=== PATIENT | male | born 1970 | race Caucasian/White ===

== ENCOUNTER 2021-06-13 21:44 | Emergency (ER) | payer OTHER, SELFPAY ==
[2021-06-13 21:59] VITALS: BP 137/79; PULSE 79; RESP 16; TEMP 37.3; O2SAT 97; BMI 26.6
[2021-06-13 22:43] LABS: COVID-19 Test Negative (Negative)
--- NOTE | 2021-06-14 00:10 | ED.FEVER ---
HPI - Fever General Chief Complaint: Fever Stated Complaint: fever, migraine Time Seen by Provider: 06/13/21 22:58 Source: patient Mode of arrival: ambulatory Limitations: no limitations History of Present Illness MD elicited complaint: fever, malaise and other (body aches, headaches) Pertinent past history: other (2 covid vaccines) Onset (ago): day(s) (2) Exacerbating factors: nothing Relieving factors: nothing Associated symptoms: myalgias, headache and sore throat Treatments prior to arrival fever: none Related Data Allergies Allergy/AdvReac Type Severity Reaction Status Date / Time No Known Allergies Allergy Verified 06/13/21 21:59 Review of Systems Review of Systems: Constitutional : positive Fever, positive Chills, positive fatigue, positive Malaise ENT/Mouth : positive sore throat, no runny nose Eyes: No Discharge Cardiovascular : No Chest Pain, No SOB Respiratory : No Cough, No Sputum Gastrointestinal : No Nausea, No Vomiting, No Diarrhea Genitourinary : No Dysuria, No Urinary Frequency Musculoskeletal : positive Myalgia Skin : No rash Neuro : pos Headache PMFSH Past Medical History Attestation statement: The following information was validated with the patient. Medical History No known health problems Social History Social History (Updated 06/14/21 @ 00:12 by Nuvia Yeboah DO) Patient Tobacco Use Status: Never used Tobacco Advance Directives: No Physical Exam Vital Signs: Vital Signs: Last Vital Signs Temp 99.2 F 06/13/21 21:59 Pulse 79 06/13/21 21:59 Resp 16 06/13/21 21:59 BP 137/79 06/13/21 21:59 Pulse Ox 97 06/13/21 21:59 BMI result Body Mass Index 26.6 Appearance: Alert. Oriented X3. No acute distress. Eyes: Pupils equal, round and reactive to light. ENT: Pharynx mild erythema and swelling no exudates noted Neck: Normal inspection. Neck supple. no meningeal signs CVS: Normal heart rate and rhythm. Pulses normal. Respiratory: No respiratory distress. Breath sounds normal. Abdomen: Soft and non-tender. Skin: Skin warm and dry. Normal skin color. Normal skin turgor. Extremities: No lower extremity edema. No calf ttp Neuro: Oriented X 3. No motor deficit. No sensory deficit. Course Course Course Narrative: negative workup at this time - will instruct him to repeat covid test on day 5 of symptoms MDM - Fever MDM Narrative Medical decision making narrative: 50 yo male otherwise healthy here with sore throat, headaches, body aches x 2 days vaccinated x 2 he is not toxic, clear lungs no meningeal signs - 97% on RA - covid/flu/strep swab ordered. I did discuss repeating testing at 5 days. He notes that he thinks a home test was positive one month ago but he doesn't sound very confident. Lab Data Labs: Lab Results 06/13/21 06/14/21 06/14/21 Range/Units 22:15 00:10 00:10 COVID-19 (CYNTHIA) Negative (Negative) COVID-19 Clin Com See Note Influenza Type A (ASIF) Negative (Negative) Influenza Type B (ASIF) Negative (Negative) Influenza A & B Note See Note S. pyogenes GrpA ASIF Negative (Negative) Discharge Plan Discharge Clinical Impression: Acute viral syndrome Patient Disposition: Home, Self-Care Instructions: Viral Syndrome (ED) Additional Instructions: return to ED for any worsening symptoms or concerns negative for flu, covid, strep throat repeat covid test on day 5 of symptoms Stand Alone Forms: Work/School Release
[2021-06-14 00:32] LABS: IDNOW Serial# 9DD0AD1C; Influenza A Negative (Negative); Influenza B2 Negative (Negative)
[2021-06-14 00:33] LABS: Strep A Nucleic Acid Negative (Negative)
[2021-06-14] MEDS: Ibuprofen 600 MG TABLET PO (00:44)
[2021-06-14 00:47] VITALS: PULSE 80; RESP 17; TEMP 37.6; O2SAT 96
== END 2021-06-14 00:48 | disposition home or self-care (01) ==
PROVIDERS: Emergency Provider Emergency Medicine
DX: B34.9 Viral infection, unspecified (principal); Z20.822 Contact with and (suspected) exposure to COVID-19; R50.9 Fever, unspecified
CPT/HCPCS: 36415; 87502; 87635; 87651; 99281; 99283; 99284

== ENCOUNTER 2021-10-14 10:33 | Emergency (ER) | payer OTHER, SELFPAY ==
[2021-10-14 10:57] VITALS: BP 108/63; PULSE 83; RESP 17; TEMP 35.9; O2SAT 97; BMI 27.3
== END 2021-10-14 13:27 | disposition left against medical advice (07) ==
PROVIDERS: Emergency Provider Emergency Medicine; PCP Internal Medicine
DX: M25.511 Pain in right shoulder (principal)
CPT/HCPCS: 99281

== ENCOUNTER 2021-10-14 19:22 | Emergency (ER) | payer OTHER, SELFPAY ==
[2021-10-14 20:18] VITALS: BP 120/86; PULSE 80; RESP 16; TEMP 36.2; O2SAT 97; BMI 27.1
== END 2021-10-15 05:56 | disposition left against medical advice (07) ==
PROVIDERS: Emergency Provider Emergency Medicine; PCP Internal Medicine
DX: M25.511 Pain in right shoulder (principal)
CPT/HCPCS: 99281

== ENCOUNTER 2023-12-14 21:16 | Emergency (ER) | payer OTHER, SELFPAY ==
--- NOTE | ~2023-12-14 | XR_ITS ---
EXAMINATION: XR RIGHT HIP WITH AP PELVIS CLINICAL INFORMATION: Pain COMPARISON: None TECHNIQUE: AP and frog-leg lateral views of the right hip and an AP view of the pelvis. FINDINGS: No fracture. Hip joint spaces are well maintained. Alignment is anatomic. Sacroiliac joints and pubic symphysis are normal. No abnormal soft tissue calcifications. XR/XR hip RT w PEL1V IMPRESSION: Normal pelvis and right hip radiographs
--- NOTE | ~2023-12-14 | XR_ITS ---
EXAMINATION: XR LUMBOSACRAL SPINE CLINICAL INFORMATION: Low back pain COMPARISON: None available. TECHNIQUE: Three views of the lumbosacral spine. FINDINGS: The vertebral bodies and posterior elements are normal. The vertebral alignment is normal. Mild degenerative disc disease is seen at L2/L3 and L3/L4. Moderate to degenerative disc disease seen at L5/S1. Posterior facet joint arthropathy seen in the lower lumbar spine. The paraspinal soft tissues are normal. XR/XR lumbar spine 2-3V IMPRESSION: Multilevel degenerative disc disease as described above.
[2023-12-14 21:18] VITALS: BP 142/80; PULSE 92; RESP 18; TEMP 37.2; O2SAT 98; BMI 26.8
[2023-12-14 21:45] VITALS: BP 113/66; PULSE 88; RESP 16; TEMP 36.9; O2SAT 98
--- NOTE | 2023-12-14 22:58 | ED_ITS ---
HPI - General Adult General Chief complaint: Allergic Reaction Stated complaint: hip problem Time Seen by Provider: 12/14/23 21:28 Source: patient, RN notes reviewed and old records reviewed Mode of arrival: ambulatory Limitations: no limitations History of Present Illness ED Provider: Christina HAGEN narrative: 53-year-old male presents for evaluation of redness to his face and chest. Patient called his doctor yesterday due to right hip pain He was prescribed prednisone and ibuprofen After taking 1 dose of the medication this morning he experienced redness to his face and chest He states that this has happened in the past after taking prednisone His doctor encouraged him to be evaluated for an allergic reaction. The patient denies any shortness of breath, facial swelling, difficulty swallowing or breathing. The patient was prescribed prednisone for right hip pain that is worse with walking. The patient does have a long history of orthopedic issues Related Data Previous Rx's ?Medication ?Instructions ?Recorded dexamethasone 4 mg tablet 4 mg PO BID #6 tabs 12/14/23 Allergies Allergy/AdvReac Type Severity Reaction Status Date / Time prednisone Allergy Redness of Verified 12/14/23 21:22 Skin Review of Systems Constitutional: Constitutional: Denies body ache(s), Denies chills and Denies fever(s) Eyes: Eyes: Denies blurry vision Cardiovascular: Cardiovascular: Denies chest pain and Denies dyspnea Respiratory: Respiratory: Denies cough and Denies dyspnea Gastrointestinal: Gastrointestinal: Denies abdominal pain, Denies nausea and Denies vomiting Musculoskeletal: Musculoskeletal: Denies back pain, Reports arthralgias, Reports joint swelling and Reports limited range of motion Integumentary/Breasts: Skin/Breast: Reports erythema PMFSH Past Medical History Medical History No known health problems Social History Social History (Updated 06/14/21 @ 00:12 by Beth Yeboah DO) Patient Tobacco Use Status: Never used Tobacco Advance Directives: No Advance Directives Information Provided: No Do you have a plan to hurt others: No Plan Physical Exam ED Vital Signs: Vital Signs - 24 hr 12/14/23 21:18 12/14/23 21:45 Temperature 99 F 98.5 F Pulse Rate 92 88 Respiratory Rate 18 16 Blood Pressure 142/80 H 113/66 Pulse Oximetry 98 98 Oxygen Delivery Method Room Air Room Air BMI result Body Mass Index 26.8 [facility] Other: No oral or perioral or retropharyngeal edema Skin Other: Mild erythema to the face, neck and upper chest. Medical Decision Making Medical Decision Making [facility] Narrative: 53-year-old male presents for evaluation of a rash, he does have some mild erythema mostly to his upper chest and neck with some involvement of the face. The patient has no urticaria, no edema, no stridor, no evidence of allergic reaction. He is likely having an adverse reaction to prednisone which she has had in the past. Plan to discontinue the prednisone. We will trial dexamethasone. The patient has had cortical steroids in the past without the same adverse reactions but has had similar reactions to prednisone before. He has never had x-rays of his lumbar spine or right hip and the patient would like to have these done today Differential Diagnosis Differential Diagnoses: The differential diagnosis associated with the presentation includes Right hip pain Sciatica Adverse reaction to prednisone Radiculopathy Discharge Plan Discharge Clinical Impression: Adverse reaction to drug, Acute pain of right hip Patient Disposition: Home, Self-Care Instructions: Hip Pain (ED) Additional Instructions: You do not have a true allergy to prednisone but rather an adverse reaction. Discontinue the prednisone and start dexamethasone twice daily for 3 days I recommend that you continue to follow-up with your outpatient providers You may need a corticosteroid injection in the future Your x-rays did not show any significant problems Prescriptions: New dexamethasone 4 mg tablet 4 mg PO BID Qty: 6 0RF Print Language: Estonian
[2023-12-15 00:15] VITALS: BP 124/68; PULSE 68; RESP 14; TEMP 36.9; O2SAT 99
== END 2023-12-14 23:53 | disposition home or self-care (01) ==
PROVIDERS: Emergency Provider Internal Medicine; PCP Internal Medicine
DX: R21 Rash and other nonspecific skin eruption (principal); T38.0X5A Adverse effect of glucocorticoids and synthetic analogues, initial encounter; Y92.009 Unspecified place in unspecified non-institutional (private) residence as the place of occurrence of the external cause; M25.551 Pain in right hip
CPT/HCPCS: 72100; 73502; 99283; 99284

== ENCOUNTER 2024-01-16 17:03 | Emergency (ER) | payer OTHER, SELFPAY ==
--- NOTE | ~2024-01-16 | XR_ITS ---
EXAMINATION: XR LUMBOSACRAL SPINE CLINICAL INFORMATION: Low back pain. COMPARISON: X-ray 12/14/2023. TECHNIQUE: Three views of the lumbosacral spine. FINDINGS: Vertebral body alignment is maintained. Vertebral body heights are maintained. No evidence of acute fracture. Mild disc degeneration at L2-L3, L3-L4. Moderate disc degeneration at L5-S1. Multilevel facet degeneration. SI joints are intact. Visualized pelvic bones are intact. XR/XR lumbar spine 2-3V IMPRESSION: Multilevel disc degenerative disease, similar to prior x-ray 12/14/2023. Electronically signed by: Anthony Mehta MD 01/16/2024 07:04 PM EDT
--- NOTE | ~2024-01-16 | XR_ITS ---
EXAMINATION: XR HIP, RIGHT CLINICAL INFORMATION: Right hip pain COMPARISON: X-ray 12/14/2023 TECHNIQUE: Two views of the right hip. FINDINGS: No evidence of acute fracture. Right hip joint space is well-maintained. Alignment is anatomic. The right SI joint and symphysis pubis are intact. No suspicious bony lesion seen. No abnormal soft tissue calcification. XR/XR hip RT w PEL1V IMPRESSION: No acute osseous abnormality. Electronically signed by: Anthony Mehta MD 01/16/2024 06:52 PM EDT
[2024-01-16 17:19] VITALS: BP 119/75; PULSE 85; RESP 19; TEMP 36.6; O2SAT 98; BMI 26.9
--- NOTE | 2024-01-16 17:22 | ED_ITS ---
HPI - Back Pain/Injury General Chief Complaint: Back Pain/Injury Stated Complaint: hip pain x3wks Time Seen by Provider: 01/16/24 21:00 Source: patient Mode of arrival: ambulatory Limitations: no limitations History of Present Illness ED Provider: Dr. Soniya Whittington HPI Narrative: Patient comes to the emergency room complaining of chronic right-sided hip pain. Patient states that he is taking Tylenol and Motrin without any relief. Patient denies any injuries. Patient states that whenever he walks it hurts. Patient states that he has already been seen by his PCP, referred to sports Medicine. Patient has an appointment pending. Related Data Previous Rx's ?Medication ?Instructions ?Recorded dexamethasone 4 mg tablet 4 mg PO BID #6 tabs 12/14/23 tramadol 50 mg tablet 50 mg PO BID PRN pain #7 tabs 01/16/24 Allergies Allergy/AdvReac Type Severity Reaction Status Date / Time prednisone Allergy Redness of Verified 01/16/24 17:20 Skin Review of Systems Review of Systems: Constitutional : No Weight loss, No Fever, No Chills, No Night Sweats, No Fatigue, No Malaise ENT/Mouth : No Hearing loss, No Ear Pain, No Nasal Congestion, No Sinus Pain, No Hoarseness, No sore throat, No Rhinorrhea, No Swallowing Difficulty Eyes: No Eye Pain, No Swelling, No Redness, No Foreign Body, No Discharge, No Vision Changes Cardiovascular : No Chest Pain, No SOB, No Dyspnea on Exertion, No Orthopnea, No Edema, No Palpitations Respiratory : No Cough, No Sputum, No Wheezing, No Smoke Exposure, No Dyspnea Gastrointestinal : No Nausea, No Vomiting, No Diarrhea, No Constipation, No abdominal Pain, No Hematochezia, No Melena Genitourinary : no irregular bleeding, No Dysuria, No Urinary Frequency, No Hematuria, No Urinary Incontinence, No Urgency, No Flank Pain, No Urinary Flow Changes, No Hesitancy Musculoskeletal complaining of right-sided hip pain No Myalgias, No Joint Swelling Skin : No Skin Lesions, No rash Neuro : No Weakness, No Numbness, No Paresthesias, No Loss of Consciousness, No Dizziness, No Headache Psych : No Anxiety/Panic, No Depression, No SI/HI/AH/VH, No Social Issues, Heme/Lymph: No Bruising, No Bleeding,No Lymphadenopathy Endocrine : No Polyuria, No Polydipsia, No Temperature Intolerance [facility] Past Medical History Medical History No known health problems Social History Social History (Updated 06/14/21 @ 00:12 by Beth Yeboah DO) Patient Tobacco Use Status: Never used Tobacco Advance Directives: No Advance Directives Information Provided: No Do you have a plan to hurt others: No Plan Physical Exam Vital Signs: Vital Signs: Last Vital Signs Temp 98 F 01/16/24 17:19 Pulse 85 01/16/24 17:19 Resp 19 01/16/24 17:19 BP 119/75 01/16/24 17:19 Pulse Ox 98 01/16/24 17:19 BMI result Body Mass Index 26.9 Const: Other: Appearance: Alert. Oriented X3. No acute distress. Eyes: Pupils equal, round and reactive to light. ENT: Pharynx normal. Neck: Normal inspection. Neck supple. No lymph nodes noted. No crepitus CVS: Normal heart rate and rhythm. Pulses normal. Normal S1 and S2 Respiratory: No respiratory distress. Breath sounds normal. No Wheezing. No rales Abdomen: Soft and nontender. No rigidity. No distention. Skin: Skin warm and dry. Normal skin color. Normal skin turgor. Extremities: No lower extremity edema. No Lacerations. No Rash Neuro: Oriented X 3. No motor deficit. No sensory deficit. Moving all extremities. No slurred speech. CN 2 through 12 grossly intact Psych: calm, cooperative, normal affect Course Course Course Narrative: This is an RME done by FARSHAD Little: Additional HPI, ROS, PE not included below will be deferred to primary provider. 53 year old male presents w/ right hip pain and lower back pain x 3 weeks worsening. No trauma. No red flag sx. Taking pills that arent working. Medical Decision Making Medical Decision Making MDM Narrative: -x-rays of the lumbar spine and pelvis, no acute obvious abnormalities. Patient already has a an appointment pending with spine surgery Discharge Plan Discharge Clinical Impression: Chronic hip pain Patient Disposition: Home, Self-Care Instructions: Hip Pain (ED) Additional Instructions: Please follow-up with your primary care physician tomorrow. If you have any worsening or new symptoms, please return to the emergency room or call 911 Prescriptions: New tramadol 50 mg tablet 50 mg PO BID PRN (Reason: pain) Qty: 7 0RF No Action dexamethasone 4 mg tablet 4 mg PO BID Qty: 6 0RF Print Language: Burmese
[2024-01-16 21:31] VITALS: BP 119/75; PULSE 85; RESP 19; TEMP 36.6; O2SAT 98
== END 2024-01-16 21:32 | disposition home or self-care (01) ==
PROVIDERS: Emergency Provider Emergency Medicine; PCP Internal Medicine
DX: G89.29 Other chronic pain (principal); M25.551 Pain in right hip
CPT/HCPCS: 72100; 73502; 99282; 99283